=== PATIENT | male | born 1955 | race African-American/Black ===

== ENCOUNTER 2022-05-26 12:23 | Outpatient (CLI) | payer OTHER, MEDICAID ==
[2022-05-26 14:08] LABS: Hemoglobin 18.5 g/dL (13.5-17.5); Mean Corpuscular HGB CONC 33.7 g/dL (32.0-36.0); Mean Corpuscular Hemoglobin 29.2 pg (27.0-33.0); Mean Corpuscular Volume 86.6 fl (81.2-95.1); Mean Platelet Volume 10.3 fl (7.4-10.4); Platelet Count 212 10x3/uL (150-450); Red Blood Cell (RBC) Count 6.34 10x6/uL (4.32-5.72); White Blood Cell (WBC) Count 4.7 10x3/uL (3.5-10.5)
[2022-05-26 14:19] LABS: Anion Gap 16 mmol/L (10-20); BUN (Urea Nitrogen) 13 mg/dL (8.4-25.7); Calc. Creatinine Clearance 0 mL/min (70-130); Calcium 9.9 mg/dL (7.8-10.44); Carbon Dioxide 29 mmol/L (23-31); Chloride 105 mmol/L (98-107); Estimated GFR 49; Glucose 119 mg/dL (80-115); Potassium 4.5 mmol/L (3.5-5.1); Sodium 145 mmol/L (136-145)
== END 2022-05-26 12:24 | disposition home or self-care (01) ==
LOC: CSHLAB 12:23
PROVIDERS: ATTEND Podiatrist Foot & Ankle Surgery
DX: Z01.818 Encounter for other preprocedural examination (principal); Z20.822 Contact with and (suspected) exposure to COVID-19
CPT/HCPCS: 80048; 85027; 87811; 93005; 93010

== ENCOUNTER 2022-05-29 09:40 | Day surgery (SDC) | payer OTHER, MEDICAID ==
[2022-05-28 09:48] VITALS: BMI 27.8
[2022-05-29] MEDS ORDERED: Bupivacaine PF 0.5% 30 ML VIAL ONE (10:08)
[2022-05-29] MEDS ORDERED: Neomycin-Polymyxin 1 ML AMP ONE (10:09)
[2022-05-29] MEDS ORDERED: Lidocaine 1% PF 5 ML VIAL ONE (11:47)
[2022-05-29] MEDS ORDERED: Fentanyl 100 MCG/2 ML VIAL ONE (11:47)
[2022-05-29] MEDS ORDERED: PROPOFOL 20 ML ONE (11:47)
[2022-05-29] MEDS ORDERED: CEFAZOLIN 2 GM VIAL ONE (12:04)
[2022-05-29] MEDS ORDERED: PHENYLEPHRINE-NS 100 MCG/ML 10 ML SYRINGE ONE (12:23)
[2022-05-29] MEDS ORDERED: ePHEDrine Sulfate 50 MG/10 ML VIAL ONE (12:27)
== END 2022-05-29 14:30 | disposition home or self-care (01) ==
LOC: CSHSDC 09:40
PROVIDERS: ATTEND Podiatrist Foot & Ankle Surgery
PROC: 0QBR0ZZ Excision of Left Toe Phalanx, Open Approach (ICD-10-PCS; principal; 2022-05-29)
PROC: 0SR Lower Joints, Replacement (ICD-10-PCS; 2022-05-29)
DX: M20.42 Other hammer toe(s) (acquired), left foot (principal); M89.8X6 Other specified disorders of bone, lower leg; I10 Essential (primary) hypertension; E11.9 Type 2 diabetes mellitus without complications; E78.5 Hyperlipidemia, unspecified; G89.29 Other chronic pain; F17.210 Nicotine dependence, cigarettes, uncomplicated; N52.9 Male erectile dysfunction, unspecified; Z79.4 Long term (current) use of insulin; Z79.82 Long term (current) use of aspirin; Z79.84 Long term (current) use of oral hypoglycemic drugs; Z79.899 Other long term (current) drug therapy; Z88.8 Allergy status to other drugs, medicaments and biological substances
CPT/HCPCS: J0690; J2704; J3010; S0020

== ENCOUNTER 2023-01-08 05:32 | Outpatient (CLI) | payer MEDICAID, OTHER ==
[2023-01-08 13:26] LABS: Hemoglobin 16.8 g/dL (13.5-17.5); Mean Corpuscular HGB CONC 33.3 g/dL (32.0-36.0); Mean Corpuscular Hemoglobin 29.6 pg (27.0-33.0); Mean Corpuscular Volume 88.7 fl (81.2-95.1); Mean Platelet Volume 9.6 fl (7.4-10.4); Platelet Count 213 10x3/uL (150-450); RBC Distribution Width 13.6 % (11.5-14.5); Red Blood Cell (RBC) Count 5.68 10x6/uL (4.32-5.72); White Blood Cell (WBC) Count 5.5 10x3/uL (3.5-10.5)
[2023-01-08 13:45] LABS: INR-International Normal Ratio 0.9; PTT 26.5 sec (22.0-33.0); Prothrombin Time 9.9 sec (9.5-12.1)
[2023-01-08 13:47] LABS: Anion Gap 19 mmol/L (10-20); BUN (Urea Nitrogen) 17 mg/dL (8.4-25.7); Calc. Creatinine Clearance 0 mL/min (70-130); Calcium 9.8 mg/dL (7.8-10.44); Carbon Dioxide 19 mmol/L (23-31); Chloride 107 mmol/L (98-107); Estimated GFR 55; Glucose 305 mg/dL (80-115); Potassium 4.1 mmol/L (3.5-5.1); Sodium 141 mmol/L (136-145)
== END 2023-01-08 05:33 | disposition home or self-care (01) ==
LOC: CSHLAB 05:32
PROVIDERS: ATTEND Orthopaedic Surgery
DX: Z01.818 Encounter for other preprocedural examination (principal); M54.50 Low back pain, unspecified
CPT/HCPCS: 80048; 85027; 85610; 85730; 93005; 93010

== ENCOUNTER 2023-01-09 07:38 | Day surgery (SDC) | payer OTHER ==
[2023-01-07 16:48] VITALS: BMI 28.4
[2023-01-09] MEDS ORDERED: Acetaminophen 500 MG TAB ONE (09:05)
[2023-01-09] MEDS ORDERED: Famotidine/PF 20 mg/2ml Vial ONE (10:13)
[2023-01-09] MEDS ORDERED: Bupivacaine/Epinephrine 0.25% 30 ML VIAL ONE (10:19)
[2023-01-09] MEDS ORDERED: Ondansetron PF 4 MG/2 ML Vial ONE (10:36)
[2023-01-09] MEDS ORDERED: Rocuronium Bromide 10 MG/ML (10ML VIAL) ONE (10:36)
[2023-01-09] MEDS ORDERED: Lidocaine 1% PF 5 ML VIAL ONE (10:36)
[2023-01-09] MEDS ORDERED: Esmolol 100 MG/10 ML VIAL ONE (10:36)
[2023-01-09] MEDS ORDERED: Dexamethasone 4 mg/ml Vial ONE (10:36)
[2023-01-09] MEDS ORDERED: CEFAZOLIN 2 GM VIAL ONE (10:43)
[2023-01-09] MEDS ORDERED: SUGAMMADEX SODIUM 200 MG/2 ML VIAL ONE (11:00)
[2023-01-09] MEDS ORDERED: HYDROmorphone 0.5 MG/0.5 ML SYRINGE ONE ×2 (11:01→13:17)
[2023-01-09] MEDS ORDERED: ePHEDrine Sulfate 50 MG/10 ML VIAL ONE (12:24)
[2023-01-09] MEDS ORDERED: PHENYLEPHRINE-NS 100 MCG/ML 10 ML SYRINGE ONE (12:28)
[2023-01-09] MEDS ORDERED: Lidocaine 1% (PF) 30 ML VIAL ONE (12:28)
[2023-01-09] MEDS ORDERED: CEFAZOLIN 1 GM VIAL ONE (12:28)
[2023-01-09] MEDS ORDERED: MINERAL OIL/WHITE PETROLATUM 3.5 GM TUBE ONE (12:28)
[2023-01-09] MEDS ORDERED: Ketorolac Tromethamine 30 MG/ML VIAL ONE (12:51)
[2023-01-09] MEDS ORDERED: Fentanyl 100 MCG/2 ML VIAL ONE (13:32)
[2023-01-09] MEDS ORDERED: oxyCODONE 5 MG TAB PO PRN (14:31)
[2023-01-09] MEDS ORDERED: Morphine 2 MG/ML VIAL SLOW IVP PRN (14:31)
[2023-01-09] MEDS ORDERED: Ondansetron PF 4 MG/2 ML Vial IVP PRN (14:32)
[2023-01-09] MEDS ORDERED: Promethazine HCl 25 MG/ML VIAL IM PRN (14:33)
[2023-01-09] MEDS ORDERED: oxyCODONE 5 MG TAB ONE (14:40)
== END 2023-01-09 16:00 | disposition home or self-care (01) ==
LOC: CSHSDC 07:38
PROVIDERS: ATTEND Orthopaedic Surgery
PROC: 00NY0ZZ Release Lumbar Spinal Cord, Open Approach (ICD-10-PCS; principal; 2023-01-09)
PROC: 0ST20ZZ Resection of Lumbar Vertebral Disc, Open Approach (ICD-10-PCS; 2023-01-09)
DX: M48.061 Spinal stenosis, lumbar region without neurogenic claudication (principal); M54.50 Low back pain, unspecified; I10 Essential (primary) hypertension; K21.9 Gastro-esophageal reflux disease without esophagitis; J45.909 Unspecified asthma, uncomplicated; G47.30 Sleep apnea, unspecified; E11.9 Type 2 diabetes mellitus without complications; F17.290 Nicotine dependence, other tobacco product, uncomplicated; Z88.8 Allergy status to other drugs, medicaments and biological substances; Z79.899 Other long term (current) drug therapy
CPT/HCPCS: 63030; 72110; C1889; J0690; J1100; J1170; J1885; J2001; J2405; J3010; S0028